=== PATIENT | male | born 1955 | race Caucasian/White ===

== ENCOUNTER 2019-01-17 12:14 | Emergency (ER) | payer OTHER ==
[2019-01-17] MEDS ORDERED: IBUPROFEN 800 MG TABLET PO ONE (12:49)
--- NOTE | 2019-01-17 12:57 | ER Document Report ---
HPI - HPI Patient complains to provider of: left shoulder pain Time Seen by Provider: 01/17/19 12:40 Onset: Yesterday Onset/Duration: Sudden Quality of pain: Achy Severity: Severe Pain Level: 4 Context: This 63-year-old male presents emergency department with left shoulder pain. Patient reports he was taking a shower yesterday and fell in the shower landing on his shoulder. He reports it did not hurt at that time but during the night he woke up and started having pain. Reports he does have a history of rotator cuff injuries. No past surgeries to his shoulders. Patient does have a history of pacemaker, sepsis. Patient is visiting from his vacation [place] [facility] the [facility]. He does live in [place] normally. Associated Symptoms: None Exacerbated by: Movement Relieved by: Denies Similar symptoms previously: No Recently seen / treated by doctor: No - CONSTITUTIONAL Constitutional: DENIES: Fever, Chills Past Medical History - General Information source: Patient - Social History Smoking Status: Unknown if Ever Smoked Cigarette use (# per day): No Frequency of alcohol use: None Drug Abuse: None Lives with: Family Family History: Reviewed & Not Pertinent Patient has suicidal ideation: No Patient has homicidal ideation: No - Past Medical History Cardiac Medical History: Reports: Hx Coronary Artery Disease, Other - pacemaker Renal/ Medical History: Denies: Hx Peritoneal Dialysis Past Surgical History: Reports: Hx Pacemaker Vertical Provider Document - CONSTITUTIONAL Agree With Documented VS: Yes Exam Limitations: No Limitations General Appearance: WD/WN, No Apparent Distress - INFECTION CONTROL TRAVEL OUTSIDE OF THE [place] IN LAST 30 DAYS: No - HEENT HEENT: Atraumatic, Normocephalic - NECK Neck: Normal Inspection, Supple. negative: Lymphadenopathy-Left, Lymphadenopathy-Right - RESPIRATORY Respiratory: Breath Sounds Normal, No Respiratory Distress - CARDIOVASCULAR Cardiovascular: Regular Rate - MUSCULOSKELETAL/EXTREMETIES Musculoskeletal/Extremeties: MAEW, FROM, Tender - left shoulder ttp, no obvious deformity, no erythema/warmth. Patient complains of pain with active movement of lifting his left arm above his head, with abduction, adduction - NEURO Level of Consciousness: Awake, Alert, Appropriate Motor/Sensory: No Motor Deficit - DERM Integumentary: Warm, Dry Adult Front & Back Diagram: 1 - c/o pain, increased with movement Course - Re-evaluation Re-evalutation: 01/17/19 12:59 63-year-old male presents emergency with department with complaints of left shoulder pain after he fell in the shower last night. Patient has point tende rness to the left shoulder. Increased pain with active movement of abduction abduction and moving his arm above his head. Patient reports decreased pain with passive range of motion. 01/17/19 13:52 Patient reports Motrin helped his pain a little bit. Shoulder X-Ray 01/17/19 12:49 IMPRESSION: No radiographic evidence of acute fracture at the left shoulder. - Vital Signs Vital signs: Temp Pulse Resp BP Pulse Ox 97.7 F 63 18 149/85 H 95 01/17/19 12:19 01/17/19 12:19 01/17/19 12:19 01/17/19 12:19 01/17/19 12:19 - Diagnostic Test Radiology reviewed: Image reviewed, Reports reviewed Procedures - Immobilization Left Shoulder Pre-Proc Neuro Vasc Exam: Normal Immobilizer type: Sling Performed by: ESMER - alexander Post-Proc Neuro Vasc Exam: Unchanged from pre-exam Alignment checked and good: Yes Discharge - Discharge Clinical Impression: Left shoulder pain Qualifiers: Chronicity: acute Qualified Code(s): M25.512 - Pain in left shoulder Injury of left rotator cuff Qualifiers: Encounter type: initial encounter Qualified Code(s): S46.002A - Unspecified injury of muscle(s) and tendon(s) of the rotator cuff of left shoulder, initial encounter Condition: Stable Disposition: HOME, SELF-CARE Instructions: Ibuprofen (General) ([facility]), Rotator Cuff Injury ([facility]), Sling as Treatment ([facility]) Additional Instructions: *You have been evaluated for left shoulder pain, suspect rotator cuff injury *Maintain the sling *Rest/Ice/Elevate your shoulder *Follow up with orthopedics for continued pain and evaluation *Take medication as prescribed *Return to ED for worsening condition, changes, needs Monitor your blood pressure. Your blood pressure was elevated today. This may be because you were anxious, in pain or because you need medication. It is important to follow up with your primary care provider for full evaluation. Prescriptions: Ibuprofen [Motrin 800 mg Tablet] 800 mg PO TID #15 tablet Forms: Elevated Blood Pressure
--- NOTE | 2019-01-17 13:51 | RADIOLOGY REPORT (SQ) ---
EXAM DESCRIPTION: SHOULDER LEFT 2 OR MORE VIEWS COMPLETED DATE/TIME: 01/17/2019 1:41 pm REASON FOR STUDY: pain, fell in shower COMPARISON: None. NUMBER OF VIEWS: Three views. TECHNIQUE: Internal rotation, external rotation, and Y view images acquired of the left shoulder. LIMITATIONS: None. FINDINGS: MINERALIZATION: Normal. BONES: No acute fracture. JOINTS: No dislocation. VISUALIZED LUNGS AND RIBS: No pneumothorax. No displaced rib fracture. There is a left-sided pacema ker. SOFT TISSUES: No radiopaque foreign body. IMPRESSION: No radiographic evidence of acute fracture at the left shoulder. TECHNICAL DOCUMENTATION: JOB ID: [id number] [employer]- All Rights Reserved Reading location - IP/workstation name: [email or web address]
[2019-01-17 13:58] VITALS: BP 141/91
== END 2019-01-17 14:21 | disposition home or self-care (01) ==
LOC: ER 12:14
DX: S46.002A Unspecified injury of muscle(s) and tendon(s) of the rotator cuff of left shoulder, initial encounter (principal); M25.512 Pain in left shoulder; W18.2XXA Fall in (into) shower or empty bathtub, initial encounter; Z95.0 Presence of cardiac pacemaker; I25.10 Atherosclerotic heart disease of native coronary artery without angina pectoris
CPT/HCPCS: 99283